=== PATIENT | male | born 1960 | race African-American/Black ===

== ENCOUNTER 2018-10-16 14:49 | Emergency (ER) | payer OTHER ==
[~2018-10-16] VITALS: Ht 193 cm; Wt 108.9 kg
[2018-10-16 15:00] VITALS: BP 124/72
--- NOTE | 2018-10-16 15:00 | NUR ---
ED Nurse Note: brought in by RA [id number] from work due bilateral knee pain 5/10 s/p tripped and fall. Denies head injury and no trauma noted. pt stated he suddent felt pain on his knee and fell on the ground. pt unable to raise both knee. complaining of 5/10 pain. will continue to monitor.
[2018-10-16] MEDS ORDERED: HYDROcodone/Acetamin 5/325 tab PO ONE (15:15)
--- NOTE | 2018-10-16 16:00 | NUR ---
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
--- NOTE | 2018-10-16 16:19 | NUR ---
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
--- NOTE | 2018-10-16 17:20 | NUR ---
ED Nurse Note: pt went to ct with stacy ruff
[2018-10-16 17:28] LABS: APPEARANCE,URINE CLEAR; BILIRUBIN, URINE NEGATIVE (NEGATIVE); COLOR,URINE PALE YELLOW; GLUCOSE, URINE (UA) NEGATIVE (NEGATIVE); KETONES,URINE NEGATIVE (NEGATIVE); LEUKOCYTE ESTERASE ,URINE 1+ (NEGATIVE); NITRITE,URINE NEGATIVE (NEGATIVE); PH,URINE 5 (4.5-8.0); PROTEIN,URINE NEGATIVE (NEGATIVE); UROBILINOGEN,URINE NORMAL MG/DL (0.0-1.0)
[2018-10-16 17:29] LABS: HEMATOCRIT 42.4 % (42.0-52.0); HEMOGLOBIN 14.1 G/DL (14.2-18.0); MEAN CORPUSCULAR VOLUME 84 FL (80-99); PLATELET COUNT 260 K/UL (150-450); RED BLOOD COUNT 5.04 M/UL (4.70-6.10); WHITE BLOOD COUNT 16.3 K/UL (4.8-10.8)
--- NOTE | 2018-10-16 17:34 | NUR ---
ED Nurse Note: pt went back from ct with tech. pt denies any pain.
[2018-10-16 17:42] VITALS: BP 150/91
[2018-10-16 17:45] LABS: ANION GAP 12 mmol/L (5-15); BLOOD UREA NITROGEN 19 mg/dL (7-18); CALCIUM 9.2 MG/DL (8.5-10.1); CARBON DIOXIDE 28 MMOL/L (21-32); CHLORIDE 102 MMOL/L (98-107); CREATININE 1.4 MG/DL (0.55-1.30); POTASSIUM 3.5 MMOL/L (3.5-5.1); SODIUM 142 MMOL/L (136-145)
[2018-10-16 18:08] LABS: ALANINE AMINOTRANSFERASE 16 U/L (12-78); ALBUMIN 3.9 G/DL (3.4-5.0); ALBUMIN/GLOBULIN RATIO 0.9 (1.0-2.7); ALKALINE PHOSPHATASE 73 U/L (46-116); ASPARTATE AMINO TRANSFERASE 22 U/L (15-37); BILIRUBIN,TOTAL 0.2 MG/DL (0.2-1.0); CKMB 1.6 NG/ML (0.0-3.6); CREATINE KINASE 328 U/L (26-308)
[2018-10-16 18:53] VITALS: BP 135/86
--- NOTE | 2018-10-16 19:20 | NUR ---
ED Nurse Note: RRECIEVED REPORT TOR ESUME CARE, PT IN BED AWAKE, ALERT AND ORIENTED X 4, PT HAS PATENT SALINE LOCK IN LEFT AC, ON CARDIAC MONITORING, PT DENIES PAIN AT THIS TIME, PT IS WAITING FOR TRANSFER TO [facility], WILL RESUME CARE ORDERED AND PREPARE FOR TRANSFER.
--- NOTE | 2018-10-16 19:55 | NUR ---
ED Nurse Note: PLACED CALL TO [facility] [place] AT [phone], S/W NEIL BECK AND GAVE VERBAL REPORT FOR PT TRANSFER WITH EXPECTED ETA, PT IS AWARE AND AGREEES, PT REMAINS ON CARDIAC MONITORING, NO DISTRESS OR CHANGES NOTED, WILL CONTINUE TO MONITOR WHILE WAITING FOR PT TRANSFER.
[2018-10-16 20:00] VITALS: BP 141/86
--- NOTE | 2018-10-16 20:09 | Emergency Room Report ---
History of Present Illness General Chief Complaint: Multiple Trauma/Fall Source: Patient, EMS Present Illness HPI 57-year-old male presents ED for evaluation. Patient brought in by EMS status post trip and fall. States that at work she was walking down the steps when he felt his legs give out and he fell down forward. Denies LOC. Is not sure if he passed out. Is complaining of bilateral leg pain, dull, 8 out of 10, nonradiating. Denies back pain. Denies headache. Denies any dizziness. No other aggravating relieving factors. Denies any other associated symptoms Allergies: Coded Allergies: No Known Allergies (Unverified , 10/16/18) Patient History Past Medical History: HTN Past Surgical History: none Pertinent Family History: none Social History: Denies: smoking, alcohol use, drug use Immunizations: UTD Reviewed Nursing Documentation: PMH: Agreed; PSxH: Agreed Nursing Documentation-PMH Past Medical History: No Stated History Hx Hypertension: Yes Review of Systems All Other Systems: negative except mentioned in HPI Physical Exam Vital Signs Date Time Temp Pulse Resp B/P (MAP) Pulse Ox O2 Delivery O2 Flow Rate FiO2 10/16/18 14:40 97.9 95 16 124/72 99 Room Air Sp02 EP Interpretation: reviewed, normal General Appearance: no apparent distress, alert, GCS 15, non-toxic Head: normocephalic, atraumatic Eyes: bilateral eye normal inspection, bilateral eye PERRL ENT: hearing grossly normal, normal pharynx, no angioedema, normal voice Neck: full range of motion, supple/symm/no masses Respiratory: chest non-tender, lungs clear, normal breath sounds, speaking full sentences Cardiovascular #1: regular rate, rhythm, no edema Cardiovascular #2: 2+ carotid (R), 2+ carotid (L), 2+ radial (R), 2+ radial (L) , 2+ dorsalis pedis (R), 2+ dorsalis pedis (L) Gastrointestinal: normal bowel sounds, non tender, soft, non-distended, no guarding, no rebound Rectal: deferred Genitourinary: normal inspection, no CVA tenderness Musculoskeletal: back normal, gait/station normal, tender - bilateral legs Neurologic: alert, oriented x3, responsive, motor strength/tone normal, sensory intact, speech normal Psychiatric: judgement/insight normal, memory normal, mood/affect normal, no suicidal/homicidal ideation Reflexes: 3+ bicep (R), 3+ bicep (L), 3+ tricep (R), 3+ tricep (L), 3+ knee (R) , 3+ knee (L) Skin: normal color, no rash, warm/dry, well hydrated Lymphatic: no adenopathy Procedures Splinting Splinting : Consent: Verbal Pre-Made Type: knee immobilizer - knee immobilizer Pre-Proc Neuro Vasc Exam: normal Post-Proc Neuro Vasc Exam: normal Patient Tolerated: Well Complications: None Medical Decision Making Diagnostic Impression: Primary Impression: Multiple injuries due to trauma Additional Impressions: Unsteady gait Syncope Qualified Codes: R55 - Syncope and collapse ER Course Hospital Course 57-year-old male presents with fall, bilateral leg pain Differential diagnoses include: fracture, contusion, dislocation Clinical course Patient placed on stretcher. on monitoring coordinator. After initial history and physical I ordered x-rays of bilateral legs, pain meds X-ray show no acute fracture. Patient attempted to walk in ED and fell again. States that his legs gave out. On reassessment patient is not sure if he blacked out on initial presentation I ordered labs, EKG, CT head, chest x-ray labs reviewed- no leukocytosis, hemoglobin/hematocrit ok, electrolytes okay, troponins negative EKG- NSR, no acute ischemic changes interpreted by me Chest x-ray- no acute process CT brain-unremarkable Patient placed in bilateral knee immobilizers. I do not believe patient can be safely discharged to home at this time. because of insurance patient will be transferred to [facility]. I feel this is a highly complex case requiring extensive working including EKG/Rhythm strip, Xray/CT/US, Blood/urine lab work, repeat exams while in ED, and administration of strong opiates/narcotics for pain control, admission to hospital or close patient follow up. Diagnosis - syncope, unsteady gait, multiple injuries due to trauma transferred in serious condition Labs Test 10/16/18 17:00 White Blood Count 16.3 K/UL (4.8-10.8) Red Blood Count 5.04 M/UL (4.70-6.10) Hemoglobin 14.1 G/DL (14.2-18.0) Hematocrit 42.4 % (42.0-52.0) Mean Corpuscular Volume 84 FL (80-99) Mean Corpuscular Hemoglobin 28.1 PG (27.0-31.0) Mean Corpuscular Hemoglobin Concent 33.3 G/DL (32.0-36.0) Red Cell Distribution Width 11.0 % (11.6-14.8) Platelet Count 260 K/UL (150-450) Mean Platelet Volume 5.8 FL (6.5-10.1) Neutrophils (%) (Auto) % (45.0-75.0) Lymphocytes (%) (Auto) % (20.0-45.0) Monocytes (%) (Auto) % (1.0-10.0) Eosinophils (%) (Auto) % (0.0-3.0) Basophils (%) (Auto) % (0.0-2.0) Differential Total Cells Counted 100 Neutrophils % (Manual) 88 % (45-75) Lymphocytes % (Manual) 7 % (20-45) Monocytes % (Manual) 5 % (1-10) Eosinophils % (Manual) 0 % (0-3) Basophils % (Manual) 0 % (0-2) Band Neutrophils 0 % (0-8) Platelet Estimate Adequate Platelet Morphology Normal Urine Color Pale yellow Urine Appearance Clear Urine pH 5 (4.5-8.0) Urine Specific [place] 1.020 (1.005-1.035) Urine Protein Negative (NEGATIVE) Urine Glucose (UA) Negative (NEGATIVE) Urine Ketones Negative (NEGATIVE) Urine Blood Negative (NEGATIVE) Urine Nitrite Negative (NEGATIVE) Urine Bilirubin Negative (NEGATIVE) Urine Urobilinogen Normal MG/DL (0.0-1.0) Urine Leukocyte Esterase 1+ (NEGATIVE) Urine RBC 0-2 /HPF (0 - 0) Urine WBC 0-2 /HPF (0 - 0) Urine Squamous Epithelial Cells Occasional /LPF Urine Bacteria Occasional /HPF (NONE) Sodium Level 142 MMOL/L (136-145) Potassium Level 3.5 MMOL/L (3.5-5.1) Chloride Level 102 MMOL/L (98-107) Carbon Dioxide Level 28 MMOL/L (21-32) Anion Gap 12 mmol/L (5-15) Blood Urea Nitrogen 19 mg/dL (7-18) Creatinine 1.4 MG/DL (0.55-1.30) Estimat Glomerular Filtration Rate > 60 mL/min (>60) Glucose Level 139 MG/DL (74-106) Calcium Level 9.2 MG/DL (8.5-10.1) Total Bilirubin 0.2 MG/DL (0.2-1.0) Aspartate Amino Transf (AST/SGOT) 22 U/L (15-37) Alanine Aminotransferase (ALT/SGPT) 16 U/L (12-78) Alkaline Phosphatase 73 U/L (46-116) Total Creatine Kinase 328 U/L (26-308) Creatine Kinase MB 1.6 NG/ML (0.0-3.6) Creatine Kinase MB Relative Index 0.4 Troponin I 0.001 ng/mL (0.000-0.056) Pro-B-Type Natriuretic Peptide 45 pg/mL (0-125) Total Protein 8.3 G/DL (6.4-8.2) Albumin 3.9 G/DL (3.4-5.0) Globulin 4.4 g/dL Albumin/Globulin Ratio 0.9 (1.0-2.7) EKG Diagnostic Results Rate: tachycardiac Rhythm: NSR ST Segments: no acute changes ASA given to the pt in ED: No Rhythm Strip Diag. Results EP Interpretation: yes Rhythm: NSR, no PVC's, no ectopy Chest X-Ray Diagnostic Results Chest X-Ray Diagnostic Results : Chest X-Ray Ordered: Yes # of Views/Limited/Complete: 1 View Indication: Chest Pain EP Interpretation: Yes Interpretation: no consolidation, no effusion, no pneumothorax, no acute cardiopulmonary disease Impression: No acute disease Electronically Signed by: Electronically signed by Darrion Berry MD Other X-Ray Diagnostic Results Other X-Ray Diagnostic Results #1: X-Ray ordered: R femur # of Views/Limited Vs Complete: 3 View Indication: Pain EP Interpretation: Yes Interpretation: no dislocation, no soft tissue swelling, no fractures Impression: No acute disease Electronically Signed by: Electronically signed by Darrion Berry MD Other X-Ray Diagnostic Results #2: X-Ray ordered: L femur # of Views/Limited Vs Complete: 3 View Indication: Pain EP Interpretation: Yes Interpretation: no dislocation, no soft tissue swelling, no fractures Impression: No acute disease Electronically Signed by: Electronically signed by Darrion Berry MD Other X-Ray Diagnostic Results #3: X-Ray ordered: R knee # of Views/Limited Vs Complete: 3 View Indication: Pain EP Interpretation: Yes Interpretation: no dislocation, no soft tissue swelling, no fractures Impression: No acute disease Electronically Signed by: Electronically signed by Darrion Berry MD Other X-Ray Diagnostic Results #4: X-Ray ordered: L knee # of Views/Limited Vs Complete: 3 View Indication: Pain EP Interpretation: Yes Interpretation: no dislocation, no soft tissue swelling, no fractures Impression: No acute disease Electronically Signed by: Electronically signed by Darrion Berry MD CT/MRI/US Diagnostic Results CT/MRI/US Diagnostic Results : Imaging Test Ordered: CT head Impression no acute process Last Vital Signs Date Time Temp Pulse Resp B/P (MAP) Pulse Ox O2 Delivery O2 Flow Rate FiO2 10/16/18 18:53 98.0 104 16 135/86 99 Room Air Status: improved Disposition: XFER T-[facility] Condition: Serious Referrals: [facility] (PCP) Darrion Berry MD Oct 16, 2018 20:09
[2018-10-16 21:05] VITALS: BP 138/83
--- NOTE | 2018-10-16 21:10 | NUR ---
ED Nurse Note: [facility] HAS ARRIVED FOR TRANSPORT, RIG#[id number], REPORT AND TRANSFER FORMS GIVEN TO TUBE BENDER MARY, PT IS AWAKE, ALERT AND ORIENTED X 4, IV SITE PATENT, SPOUSE AT BEDSIDE AND TAKING ALL PT BELONGINGS, PT HAS BILAT KNEE IMMOBILIZERS APPLIED, NO CP, NO SOB, NAD NOTED DURING ALS TRANSPORT.
--- NOTE | 2018-10-17 19:15 | Diagnostic Imaging Report ---
Indication: Left thigh pain Comparison: None Findings: 2 views of the left femur were obtained. No acute fractures, malalignment, erosions or periostitis are identified. Soft tissues are unremarkable. Narrowing and osteophyte formation at the knee and left hip noted. Impression: Negative examination for acute injury
--- NOTE | 2018-10-17 19:15 | Diagnostic Imaging Report ---
Indication: Knee Pain 3 views of the left knee were obtained. Findings: No acute fractures identified. There is moderate osteoarthrosis all 3 compartments. IMPRESSION: No acute injury
--- NOTE | 2018-10-17 19:15 | Diagnostic Imaging Report ---
Indication: Pain Knee pain/trauma 3 views of the right knee were obtained. Findings: No acute fracture, malalignment, or joint effusion are identified. Joint space is relatively well-maintained. Joint space narrowing and osteophytes especially in the medial compartment demonstrated. Impression: Negative for acute findings. Osteoarthrosis
--- NOTE | 2018-10-17 19:15 | Diagnostic Imaging Report ---
Indication: Pain Thigh pain Findings: 2 views of the right femur were obtained. No acute fractures, malalignment, erosions or periostitis are identified. Soft tissues are unremarkable. DJD noted at the hip and knee. Impression: Negative for acute injury
--- NOTE | 2018-10-17 19:15 | Diagnostic Imaging Report ---
Indication: Syncope Technique: Contiguous 5 mm thick transaxial imaging of the head obtained in a Siemens Sensation [address] scanner. Soft tissue and bone windows generated. Automatic Exposure Control was utilized. Total Dose length Product (DLP): [address] Dose Index Volume (CTDIvol): 70.38 mGy Comparison: none Findings: The size and configuration of the cortical sulci, basal cisterns, and ventricles are within normal limits for age. There is no mass effect, midline shift, or edema identified. There is no evidence of acute hemorrhage or abnormal intra-axial or extra-axial fluid collections. The bones and soft tissues are unremarkable. Impression: No mass effect, edema or acute bleed. The CT scanner at [facility] is accredited by the [employer] and the scans are performed using dose optimization techniques as appropriate to a performed exam including Automatic Exposure control.
--- NOTE | 2018-10-17 19:16 | Diagnostic Imaging Report ---
Indication: Dyspnea Comparison: None A single view chest radiograph was obtained. Findings: Cardiomediastinal appearance is within normal limits for age. The lungs are clear. Pulmonary vascularity is appropriate. The diaphragmatic contour is smooth and costophrenic angles are sharp. No pleural effusions are identified. The bones are unremarkable. Impression: No acute findings
--- NOTE | 2018-10-17 19:17 | Cardiology Report ---
APPROVED REPORT EKG Measurement Heart [id number] Sinus tachycardia Cannot rule out Anterior infarct, age undetermined Abnormal ECG
== END 2018-10-16 21:17 | disposition short-term general hospital (02) ==
LOC: EDBD 14:49 → EMR 15:23
DX: M79.605 Pain in left leg (principal); M79.604 Pain in right leg; R55 Syncope and collapse; R26.81 Unsteadiness on feet; W10.9XXA Fall (on) (from) unspecified stairs and steps, initial encounter; Y92.9 Unspecified place or not applicable; I10 Essential (primary) hypertension
CPT/HCPCS: 29505; 36415; 70450; 71045; 80053; 81003; 82550; 82553; 83880; 84484; 85007; 85025; 93005; 99285